=== PATIENT | male | born 1940 | race Two or more races ===

== ENCOUNTER 2016-03-18 18:20 | Emergency (ER) | payer MEDICARE, BC ==
[~2016-03-18] VITALS: Ht 177.8 cm; Wt 81.6 kg
[2016-03-18 19:56] LABS: Basophils # (auto) 0 uL; Basophils % (auto) 0.3 % (0.0-2.0); Eosinophils # (auto) 0 uL; Eosinophils % (auto) 0.3 % (0.0-7.0); Hematocrit 45.4 % (41.0-53.0); Hemoglobin 14.5 g/dL (13.5-17.5); Lymphocytes # (auto) 1.2 uL; Lymphocytes % (auto) 20.2 % (10.0-50.0); Mean Corpuscular Hemoglobin 29.5 pg (28.0-32.0); Mean Corpuscular Volume 92.4 fL (80.0-100.0); Mean Platelet Volume 9.7 fL (7.4-10.4); Monocytes # (auto) 0.5 uL; Monocytes % (auto) 9.1 % (0.0-12.0); Neutrophils # (auto) 4.2 uL; Neutrophils % (auto) 70.1 % (37.0-80.0); Platelet Count (auto) 204 10^3/uL (140-450); Red Cell Distribution Width 13.7 % (11.6-16.0)
[2016-03-18 20:28] LABS: Albumin 3.9 g/dL (3.4-5.0); Calcium 8.9 mg/dL (8.5-10.1); Potassium 3.2 mmol/L (3.5-5.1)
[2016-03-18 20:32] LABS: BUN/Creatinine Ratio 17.2; Magnesium 2.2 mg/dL (1.6-2.6)
[2016-03-18 20:34] LABS: Bilirubin, Total 0.6 mg/dL (0.2-1.0)
[2016-03-18 20:49] LABS: INR 1.04 (0.9-1.15); Partial Thromboplastin Time 31.4 sec (22.64-33.71); Prothrombin Time 10.7 sec (9.37-12.3)
[2016-03-18] MEDS ORDERED: MORPHINE SULFATE 4 MG/ML SYRG IV ONE (21:00)
[2016-03-18] MEDS ORDERED: ONDANSETRON HCL 4 MG/2 ML VIAL IV ONE (21:00)
[2016-03-18] MEDS ORDERED: diphenhdrAMINE HCL 50 MG/1 ML VL IV ONE (22:00)
[2016-03-18] MEDS ORDERED: POTASSIUM CHL 20 Meq TABLET PO ONE (22:00)
[2016-03-18 22:09] LABS: Urine Bilirubin Negative (Negative); Urine Blood Negative /uL (Negative); Urine Color Yellow (Yellow); Urine Glucose Normal (Normal); Urine Ketone Negative (Negative); Urine Nitrite Negative (Negative); Urine RBC 1 /hpf (0 - 3); Urine Sperm PRESENT /hpf (None Seen); Urine Urobilinogen Normal (Negative); Urine pH 6.5 (5.0-8.0)
[2016-03-18 23:33] VITALS: BP 159/89
[2016-03-18] MEDS ORDERED: traMADol HCL 50 MG TAB PO ONE (23:45)
== END 2016-03-18 23:48 | disposition home or self-care (01) ==
LOC: EDBD 18:20 → ER 18:25
DX: S16.1XXA Strain of muscle, fascia and tendon at neck level, initial encounter (principal); R07.89 Other chest pain; R51 Headache; M54.5 Low back pain; G89.29 Other chronic pain; I10 Essential (primary) hypertension; I25.2 Old myocardial infarction; Z88.6 Allergy status to analgesic agent; V43.52XA Car driver injured in collision with other type car in traffic accident, initial encounter; Y93.89 Activity, other specified; Y99.8 Other external cause status; Y92.488 Other paved roadways as the place of occurrence of the external cause
CPT/HCPCS: 36415; 70450; 71020; 71250; 72125; 74176; 80053; 81001; 83735; 84484; 85025; 85610; 85730; 93005; 96374; 96375; 99285; J1200; J2270; J2405